=== PATIENT | male | born 1985 | race American Indian/Alaskan Native ===

== ENCOUNTER 2018-05-20 21:52 | Emergency (ER) | payer OTHER ==
--- NOTE | 2018-05-20 22:36 | XRay Report ---
FINAL REPORT EXAM: XR CHEST ROUTINE 2V HISTORY: Shortness of breath COMPARISON: None available. FINDINGS:: Frontal and lateral views of the chest obtained. Heart upper limits normal in size. Shall ow inspiration.. Subtle linear density right lung base likely reflecting atelectasis. No large airspa ce consolidation or effusion. Mild scarring at the lung apices. IMPRESSION:: Shallow inspiration. Subtle linear atelectasis at the right lung base. No large consoli dation or effusion.
[2018-05-20 23:13] LABS: Basophils # (Auto) 0.1 K/mm3 (0.0-0.1); Basophils % (Auto) 0.7 % (0.0-1.8); Eosinophils # (Auto) 0.1 K/mm3 (0.0-0.4); Eosinophils % (Auto) 1.5 % (0.0-4.3); Hematocrit 40.5 % (35.5-45.6); Hemoglobin 13.6 gm/dl (11.8-15.2); Lymphocytes % (Auto) 42.6 % (13.4-35.0); Mean Corpuscular HGB Conc 33 % (32-34); Mean Corpuscular Volume 86 fl (84-94); Monocytes # (Auto) 0.5 K/mm3 (0.0-0.8); Monocytes % (Auto) 5.8 % (0.0-7.3); Platelet Count 221 K/mm3 (140-440); Red Blood Count 4.69 M/mm3 (3.65-5.03); Red Cell Distribution Width 14.1 % (13.2-15.2)
[2018-05-20 23:31] LABS: BUN/Creatinine Ratio 8; Blood Urea Nitrogen 8 mg/dL (9-20); Calcium 9.3 mg/dL (8.4-10.2); Hemolysis Index 6
[2018-05-21] MEDS ORDERED: TORADOL IM ONE (00:49)
[2018-05-21] MEDS ORDERED: TYLENOL PO ONE (00:49)
[2018-05-21] MEDS ORDERED: PROVENTIL IH ONE (00:52)
[2018-05-21] MEDS ORDERED: ATROVENT IH ONE (00:52)
--- NOTE | 2018-05-21 01:20 | Emergency Department Report ---
ED General Adult HPI - General Chief complaint: Dyspnea/Respdistress Stated complaint: BACK PAIN Time Seen by Provider: 05/21/18 00:13 Source: patient Mode of arrival: Ambulatory Limitations: No Limitations - History of Present Illness Initial comments: Patient is a 32-year-old male past medical history of tobacco abuse who presents with right-sided chest pain. Patient states that her swimming turns or moves. Nothing makes it better he states it's a 7 out of 10. He states that he is mildly short of breath no nausea no vomiting. He denies having any trauma to his chest. He is a daily smoker for no sputum production - Related Data Previous Rx's Medication Instructions Recorded Last Taken Type traMADol [Ultram] 50 mg PO Q6H PRN #20 tablet 01/29/15 Unknown Rx Acetaminophen 500 mg PO Q6H #30 tablet 05/21/18 Unknown Rx Diclofenac Sodium [Voltaren] 100 gm TP Q6H #1 gel..gram. 05/21/18 Unknown Rx Allergies Allergy/AdvReac Type Severity Reaction Status Date / Time No Known Allergies Allergy Verified 05/20/18 22:04 ED Review of Systems ROS: Stated complaint: BACK PAIN Other details as noted in HPI Constitutional: denies: chills, fever Eyes: denies: eye pain, eye discharge, vision change ENT: denies: ear pain, throat pain Respiratory: shortness of breath. denies: cough, wheezing Cardiovascular: chest pain. denies: palpitations Endocrine: no symptoms reported Gastrointestinal: denies: abdominal pain, nausea, diarrhea Genitourinary: denies: urgency, dysuria Musculoskeletal: back pain. denies: joint swelling, arthralgia Skin: denies: rash, lesions Neurological: denies: headache, weakness, paresthesias Psychiatric: denies: anxiety, depression Hematological/Lymphatic: denies: easy bleeding, easy bruising ED Past Medical Hx - Past Medical History Previous Medical History?: No - Surgical History Past Surgical History?: No - Social History Smoking Status: Current Every Day Smoker Substance Use Type: None - Medications Home Medications: Home Medications Medication Instructions Recorded Confirmed Last Taken Type traMADol [Ultram] 50 mg PO Q6H PRN #20 tablet 01/29/15 Unknown Rx Acetaminophen 500 mg PO Q6H #30 tablet 05/21/18 Unknown Rx Diclofenac Sodium [Voltaren] 100 gm TP Q6H #1 gel..gram. 05/21/18 Unknown Rx ED Physical Exam - General Limitations: No Limitations General appearance: alert, in no apparent distress - Head Head exam: Present: atraumatic, normocephalic - Eye Eye exam: Present: normal appearance - ENT ENT exam: Present: mucous membranes moist - Neck Neck exam: Present: normal inspection - Respiratory Respiratory exam: Present: normal lung sounds bilaterally. Absent: respiratory distress - Cardiovascular Cardiovascular Exam: Present: regular rate, normal rhythm. Absent: systolic murmur, diastolic murmur, rubs, gallop - GI/Abdominal GI/Abdominal exam: Present: soft, normal bowel sounds - Rectal Rectal exam: Present: deferred - Extremities Exam Extremities exam: Present: normal inspection - Back Exam Back exam: Present: normal inspection - Neurological Exam Neurological exam: Present: alert, oriented X3 - Psychiatric Psychiatric exam: Present: normal affect, normal mood - Skin Skin exam: Present: warm, dry, intact, normal color. Absent: rash ED Course Vital Signs 05/20/18 22:05 Temperature 98.3 F Pulse Rate 94 H Respiratory 16 Rate Blood Pressure 138/87 O2 Sat by Pulse 100 Oximetry ED Medical Decision Making - Lab Data Result diagrams: 05/20/18 22:53 05/20/18 22:53 Lab Results 05/20/18 05/20/18 Range/Units 22:53 22:53 WBC 9.3 (4.5-11.0) K/mm3 RBC 4.69 (3.65-5.03) M/mm3 Hgb 13.6 (11.8-15.2) gm/dl Hct 40.5 (35.5-45.6) % MCV 86 (84-94) fl MCH 29 (28-32) pg MCHC 33 (32-34) % RDW 14.1 (13.2-15.2) % Plt Count 221 (140-440) K/mm3 Lymph % (Auto) 42.6 H (13.4-35.0) % Butts % (Auto) 5.8 (0.0-7.3) % Eos % (Auto) 1.5 (0.0-4.3) % Baso % (Auto) 0.7 (0.0-1.8) % Lymph # 4.0 (1.2-5.4) K/mm3 Butts # 0.5 (0.0-0.8) K/mm3 Eos # 0.1 (0.0-0.4) K/mm3 Baso # 0.1 (0.0-0.1) K/mm3 Seg Neutrophils % 49.4 (40.0-70.0) % Seg Neutrophils # 4.6 (1.8-7.7) K/mm3 Sodium 142 (137-145) mmol/L Potassium 4.1 (3.6-5.0) mmol/L Chloride 102.6 (98-107) mmol/L Carbon Dioxide 28 (22-30) mmol/L Anion Gap 16 mmol/L BUN 8 L (9-20) mg/dL Creatinine 1.0 (0.8-1.5) mg/dL Estimated GFR > 60 ml/min BUN/Creatinine Ratio 8 % Glucose 120 H (75-100) mg/dL Calcium 9.3 (8.4-10.2) mg/dL - EKG Data -: EKG Interpreted by Me - EKG Data 05/21/18 01:36 EKG shows sinus rhythm right axis deviation no ST segment elevation or T-wave inversion - Radiology Data Radiology results: report reviewed, image reviewed Chest x-ray shows shallow inspiration no acute cardiopulmonary disease - Medical Decision Making Chief medical diagnosis: Costochondritis Differential diagnosis: Pneumonia, bronchitis I'll give CBC BMP chest x-ray EKG and then I will give patient breathing milla tment Patient's blood work is unremarkable I'll send patient home with Voltaren cream. Discussed plan with patient agrees with plan additional verbal discharge instructions were given. Spent 5 minutes discussing with patient about tobacco abuse cessation counseling discussed e-cigarette and nicotine patch cessation. Patient states that he will try to quit. Critical care attestation.: If time is entered above; I have spent that time in minutes in the direct care of this critically ill patient, excluding procedure time. ED Disposition Clinical Impression: Costochondral chest pain, Tobacco abuse counseling, Tobacco abuse Disposition: TO HOME OR SELFCARE Is pt being admited?: No Does the pt Need Aspirin: No Condition: Stable Instructions: Costochondritis (ED) Prescriptions: Acetaminophen 500 mg PO Q6H #30 tablet Diclofenac Sodium [Voltaren] 100 gm TP Q6H #1 gel..gram. Referrals: LUZ SANDERS MD [Primary Care Provider] - 3-5 Days
[2018-05-21 03:10] VITALS: BP 134/68
== END 2018-05-21 03:08 | disposition home or self-care (01) ==
LOC: ED 21:52
DX: M94.0 Chondrocostal junction syndrome [Tietze] (principal); F17.200 Nicotine dependence, unspecified, uncomplicated; Z71.6 Tobacco abuse counseling
CPT/HCPCS: 36415; 71046; 80048; 85025; 93005; 93010; 94640; 96372; 99284; J1885